=== PATIENT | female | born 1965 | race Caucasian/White ===

== ENCOUNTER 2016-04-21 14:02 | Outpatient (CLI) | payer OTHER ==
[~2016-04-21] VITALS: Ht 160 cm; Wt 76.8 kg
[2016-04-21 14:18] VITALS: BP 117/72; PULSE 82; RESP 18; Ht 160 cm; Wt 76.8 kg
[2016-04-21] MEDS ORDERED: CITA10TA84 PO (15:43)
[2016-04-21] MEDS ORDERED: BENZ0.5T3 PO (15:43)
[2016-04-21] MEDS ORDERED: BENZ1TAB7 PO (15:43)
[2016-04-21] MEDS ORDERED: PERP4TAB10 PO (15:43)
[2016-04-21] MEDS ORDERED: TRAZ50TA18 PO (15:43)
[2016-04-21] MEDS ORDERED: SIMV20TA PO (15:43)
--- NOTE | 2016-04-21 17:07 | CONS ---
[facility] INITIAL OUTPATIENT CONSULTATION NOTE PLACE OF SERVICE: [facility] DATE OF CONSULTATION: 04/21/2016 ASSESSMENT AND PLAN: A very pleasant 51-year-old lady with several comorbid issues including BMI of 30 as well as a number of medical problems such as hyperlipidemia, anxiety, depression, and prior cholecystectomy that has been complicated by an umbilical incisional hernia. This is a relatively straightforward problem to take care of surgically. Since the patient has pain in the location distal to this, it would be important for us to get an abdominal CT scan in order to identify and plan for the operation better. I explained this to the patient and answered all her questions to the best of my ability. The patient appeared to understand and wished to proceed. With above assessment I have recommended the followin. Abdominal and pelvic CT scan with IV and oral contrast. 2. Follow up visit with us to obtain the consent for the operation which will likely be an open umbilical hernia repair. Thank you again for allowing us to participate in the care of this very pleasant lady and I am certain her wonderful family. Note that no family was present during this discussion with the patient. If there are any questions, please call me at [phone]. TOTAL VISIT TIME: 45 minutes of which more than half was spent in [id number] discussion with the patient as well as coordination of care between multiple physicians and providers. Updated Clinical Summary: The patient is a very pleasant 51-year-old lady with comorbidity of BMI 30 and previous laparoscopic cholecystectomy in [facility] 2 years ago that was complicated by incisional hernia. COMORBIDITIES: 1. BMI 30. 2. Prior laparoscopic cholecystectomy complicated by incisional hernia at the umbilicus. 3. Possible muscle spasm treated with Benztropine. 4. History of hyperlipidemia. 5. Anxiety. 6. Depression. HISTORY OF PRESENT ILLNESS: The patient is a very pleasant 51-year-old lady with above-mentioned comorbidities who was referred to us for evaluation and management of an umbilical lump with associated pain and discomfort and no prior bowel obstructions. The patient had a laparoscopic cholecystectomy done in [facility] approximately 2 years ago and reports feeling this mass around her umbilicus since then. She also has slight amount of pain slightly superior and lateral to this region. She has been eating well, and her appetite has been unchanged. No significant weight gain or weight loss. No other pertinent positives or pertinent negatives in a complete 14-point review of systems. ALLERGIES: NO KNOWN DRUG ALLERGIES. MEDICATIONS: 1. Benztropine. 2. Cogentin. 3. Citalopram. 4. Perphenazine 5. Zocor. 6. Trazodone. SOCIAL HISTORY: Currently, the patient is not working. 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 She does not report any smoking, drinking , or intravenous drug use. FAMILY HISTORY: No major reported medical, surgical, or oncologic problems in the family. REVIEW OF SYSTEMS: As above. PHYSICAL EXAMINATION: GENERAL: The patient appears to be a very pleasant lady of descent, appearing stated age, sitting in a chair comfortably and in no acute distress. BMI is 30. She is afebrile. VITAL SIGNS: Stable. HEENT: Normocephalic and atraumatic. Extraocular muscles and hearing are grossly intact bilaterally and symmetrically. Sclerae are nonicteric. Oral cavity is clear; oral mucosa appeared to be pink and moist. Dentition: fair. NECK: Supple. There is no lymphadenopathy or JVD. There is no submental, submandibular or supraclavicular lymphadenopathy. CHEST: Rises symmetrically with each breath; patient is breathing comfortably. There are no audible wheezes, rales or rhonchi on the gross exam. HEART: Pulse is regular and palpable on the left wrist. Capillary refill was normal. Carotid pulses are palpable bilaterally and symmetrically in the neck. ABDOMEN: Soft, nondistended, and mildly tender to palpation around the area of the umbilicus that shows well-healed scar but a slight bulge that is palpable with the patient standing up and worsens slightly with Valsalva maneuver. The area superior and lateral to the left of this region does elicit a bit of tenderness, but there is no obvious hernia in that spot. No peritoneal signs or guarding. SKIN: Otherwise appears to be pink and feels warm to touch. EXTREMITIES: There is no organomegaly, caput medusae, engorged subcutaneous veins, or evidence of ascites. NEUROLOGIC: Awake, alert, and follows commands appropriately. LABORATORY VALUES: None for this visit. IMAGING: None for this visit. Dictated By: MIRTA REGAN/CANELO Conf#: [id number] DID#: [id number] CC: Azael Newman MD;*[facility]* MTDD
== END 2016-04-21 17:00 | disposition home or self-care (01) ==
LOC: HPC 14:02
PROVIDERS: ATTEND Transplant Surgery
DX: K43.2 Incisional hernia without obstruction or gangrene (principal); E78.5 Hyperlipidemia, unspecified; F41.8 Other specified anxiety disorders
CPT/HCPCS: G0463

== ENCOUNTER 2016-05-03 12:39 | Outpatient (CLI) | payer OTHER ==
[~2016-05-03] VITALS: Ht 160 cm; Wt 76.8 kg
[~2016-05-03 12:39] MED LIST: BENZ0.5T3 PO; BENZ1TAB7 PO; CITA10TA84 PO; PERP4TAB10 PO; SIMV20TA PO; TRAZ50TA18 PO
[2016-05-03 13:00] VITALS: BP 108/60; PULSE 81; RESP 16; Ht 160 cm; Wt 76.8 kg
--- NOTE | 2016-05-03 16:09 | CONS ---
[facility] OUTPATIENT SUBSEQUENT CONSULTATION NOTE DATE OF CONSULTATION: 05/03/2016 PLACE OF SERVICE: [facility] at [facility] IMPRESSION AND PLAN: A very pleasant 51-year-old lady with multiple comorbid issues who has an incisional umbilical hernia that is amenable to surgical repair. I spent quite a bit of time during this visit obtaining the patient's consent. After describing the findings that we had on the CT scan of the abdomen and pelvis that was done on 04/30/2016, showing moderate-sized midline ventral periumbilical hernia containing fat only and otherwise unremarkable CT scan. Patient is interested in having the operation. I reviewed the risks, benefits and alternatives in detail with the patient and answered all of these questions and obtained her consent for the operation. With above assessment I have recommended the followin. Preoperative history and physical. 2. Schedule the patient for a laparoscopic, possible open, possible mesh hernia repair of the umbilical incisional hernia. Thank you again for allowing us to participate in the care of this very pleasant lady and I am certain her wonderful family. If there are any questions , please feel free to call me at [phone]. TOTAL VISIT TIME: 30 minutes of which more than half was spent in [id number] discussion with the patient as well as coordination of care between multiple physicians and providers. Updated Clinical Summary: The patient is a very pleasant 51-year-old lady with comorbidity of BMI 30 and previous laparoscopic cholecystectomy in [facility] 2 years ago that was complicated by incisional hernia. COMORBIDITIES: 1. BMI 30. 2. Prior laparoscopic cholecystectomy complicated by incisional hernia at the umbilicus. 3. Possible muscle spasm treated with Benztropine. 4. History of hyperlipidemia. 5. Anxiety. 6. Depression. SUBJECTIVE: Returns today after undergoing CT scan of the abdomen and pelvis on 04/30/2016 for evaluation and management of her umbilical incisional hernia. She has no new complaints. She still has some discomfort in the periumbilical region and some in the left mid quadrant, away from the umbilical area. No reported nausea or vomiting and no issues with fevers and chills. OBJECTIVE: GENERAL: On exam, the patient was sitting in a chair and appeared to be comfortable and in no acute distress. BMI is 30. Temperature is 98.2. Blood pressure 117/72. Pulse 82, respiratory rate 18, pulse oximetry 96% on room air. ABDOMEN: Soft, nondistended and minimally tender to palpation around the umbilicus. The skin overlying it is not erythematous and appears to be pink. The abdomen is otherwise soft and nondistended. There are no peritoneal signs or guarding. SKIN: Skin appears to be pink and feels warm to touch. NEUROLOGIC: Patient is awake, alert, and follows commands appropriately. Dictated By: MIRTA REGAN/CANELO Conf#: [id number] DID#: [id number] CC: Manny Loera;*[facility]* MTDD
== END 2016-05-03 16:37 | disposition home or self-care (01) ==
LOC: HPC 12:39
PROVIDERS: ATTEND Transplant Surgery
DX: K42.9 Umbilical hernia without obstruction or gangrene (principal); E78.5 Hyperlipidemia, unspecified; F41.9 Anxiety disorder, unspecified; F32.9 Major depressive disorder, single episode, unspecified
CPT/HCPCS: G0463

== ENCOUNTER 2016-06-17 06:48 | Day surgery (SDC) | payer OTHER ==
[~2016-06-17] VITALS: Ht 154.9 cm; Wt 76.9 kg
[2016-06-17] VITALS (15 sets, daily range): BP systolic 100–140; BP diastolic 54–76; PULSE 68–89; RESP 12–24; Ht 154.9 cm; Wt 76.9 kg
[2016-06-17] MEDS ORDERED: CEFAZOLIN 2 GM/50 ML (PMX) 50 ML IVPB ONE (07:00)
[2016-06-17] MEDS ORDERED: D5W-0.45 NACL + KCL 20 MEQ 1,000 ML IV ONE (07:00)
[2016-06-17] MEDS ORDERED: BENZ1TAB7 PO (07:44)
--- NOTE | 2016-06-17 09:05 | HPN ---
Date/Time of Note Date/Time of Note DATE: 06/17/16 TIME: 09:04 Interval H&P Admission Note Pt. seen H&P reviewed: No system changes Pt. seen H&P reviewed. No system changes (I attest that I have seen and examined the patient and reviewed the operation in detail, as well as its risks , benefits and alternatives of the operation). I attest that I have seen and examined the patient and reviewed in detail the operation, and its associated risks, benefits and alternative. I have answered all the patient's questions to the best of my ability and the patient wishes to proceed. Please refer to rest of electronic medical record for additional updates. MIRTA WITT M.D. Jun 17, 2016 09:05
[2016-06-17] MEDS ORDERED: ONDANSETRON 4 MG INJ ONE (09:06)
[2016-06-17] MEDS ORDERED: MIDAZOLAM 1 MG/ML 2 ML INJ ONE (09:06)
[2016-06-17] MEDS ORDERED: DEXAMETHASONE 4 MG/ML 1 ML INJ ONE (09:07)
[2016-06-17] MEDS ORDERED: BUPIVACAINE 0.25%/EPI (SDV) 30 ML INJ ONE (09:14)
[2016-06-17] MEDS ORDERED: POLYMYXIN/BACITRACIN 1L IRRIG ONE (09:14)
[2016-06-17] MEDS ORDERED: PHENYLephrine (100 MCG/ML) 5ML SYG ONE (09:41)
[2016-06-17] MEDS ORDERED: SUCCINYLCHOLINE CHLORIDE 100 MG/5 ML SYG IV ONE (09:43)
[2016-06-17] MEDS ORDERED: LIDOCAINE 2% (SDV) 5 ML INJ ONE (09:43)
[2016-06-17] MEDS ORDERED: PROPOFOL 20 ML ONE (09:43)
[2016-06-17] MEDS ORDERED: ROCURONIUM 50 MG INJ ONE (09:43)
[2016-06-17] MEDS ORDERED: EPHEDrine SULFATE 50 MG/5 ML SYG ONE (10:04)
[2016-06-17] MEDS ORDERED: CEFAZOLIN 1 GM INJ ONE (10:04)
[2016-06-17] MEDS ORDERED: KETAMINE 500 MG INJ ONE (10:29)
[2016-06-17] MEDS ORDERED: POLYMYXIN/BACITRACIN 1L IRRIG IRR ONE (10:45)
[2016-06-17] MEDS ORDERED: GLYCOPYRROLATE 0.4 MG INJ ONE (11:12)
[2016-06-17] MEDS ORDERED: NEOSTIGMINE 3 MG/3 ML SYRINGE ONE (11:12)
[2016-06-17] MEDS ORDERED: HYDROmorphONE 2 MG/ML SYG ONE (11:18)
--- NOTE | 2016-06-17 12:17 | OPR ---
Date/Time of Note Date/Time of Note DATE: 06/17/16 TIME: 12:16 Operative Report Operative\Procedure Findings [facility] INPATIENT OPERATIVE NOTE PLACE OF SERVICE: [facility] DATE OF SURGERY: 06/17/2016 PREOPERATIVE DIAGNOSIS: 1. Prior laparoscopic cholecystectomy complicated by incisional hernia at the umbilicus. 2. BMI 30. 3. Possible muscle spasm treated with Benztropine. 4. History of hyperlipidemia. 5. Anxiety. 6. Depression. POSTOPERATIVE DIAGNOSIS: 1. Prior laparoscopic cholecystectomy complicated by incisional hernia at the umbilicus. 2. BMI 30. 3. Possible muscle spasm treated with Benztropine. 4. History of hyperlipidemia. 5. Anxiety. 6. Depression. OPERATION: 1. Laparoscopic, converted to open umbilical incisional hernia repair with mesh (3cm x 3cm defect; Ventralight ST [id number]) SURGEON: Mirta Witt M.D. CYCLE SPECIALIST: [place] ANESTHESIA: General endotracheal tube anesthesia ANESTHESIOLOGIST: Letitia Pang CRNA BRIEF SUMMARY: An otherwise uncomplicated laparoscopic, converted to open umbilical incisional hernia repair with mesh (3cm x 3cm defect; Ventralight ST [id number]) was performed with findings of 3 x 3 cm incisional ventral hernia repair that was periumbilical. Updated Clinical Summary: The patient is a very pleasant 51-year-old lady with comorbidity of BMI 30 and previous laparoscopic cholecystectomy in [facility] 2 years ago that was complicated by incisional hernia. COMORBIDITIES: 1. BMI 30. 2. Prior laparoscopic cholecystectomy complicated by incisional hernia at the umbilicus. 3. Possible muscle spasm treated with Benztropine. 4. History of hyperlipidemia. 5. Anxiety. 6. Depression. BRIEF HISTORY: The patient is a very pleasant 51-year-old lady with comorbidity of BMI 30 and previous laparoscopic cholecystectomy in [facility] 2 years ago that was complicated by incisional hernia. I met with the patient (no family present during my discussions with the patient) and counseled them regarding the possible options of treatment, and I strongly suggested a laparoscopic, possible open ventral incisional hernia repair, possibly with mesh. We reviewed the operation in detail as well as the risks, benefits, alternatives, and expected outcomes of this operation. After careful consideration of all the risks, benefits, and alternatives, the patient appeared to understand those risks and wished to proceed with surgery. For a detailed report of my consultation with patient, please refer to my separate consultation note. STATEMENT OF THE INFORMED CONSENT: The patient appeared to understand the risks of the operation to include, but not be limited to risk of postoperative pain and scar tissue, possible infection or bleeding requiring other interventions such as opening the wound, placement of drainage catheters, or other operative interventions; possible injury to surrounding to structures including bowel, bladder, bile duct, or blood vessels, or solid organs such as liver, kidney, or pancreas requiring other interventions or procedures; possible leakage of bowel from anastomotic sites or suture lines causing significant increase in morbidity and mortality and requiring multiple interventions including but not limited to, placement of drainage catheters, imaging studies, as well as operative interventions; possible other source of sepsis such as urinary tract infections or pneumonias, or other sources of potentially life threatening problems such as deep venous thrombus formation causing pulmonary embolism, myocardial arrhythmias and infarctions, and even . After careful consideration of all their options, the patient and family appeared to understand and wished to proceed with surgery. DESCRIPTION OF PROCEDURE: After obtaining informed consent, the patient was brought into the operating room and was placed in a normal supine position, where successful general endotracheal tube anesthesia was performed. Intravenous access was already in place and intravenous antimicrobials had been appropriately chosen and dosed prior to the operation. The patient's abdominal skin was prepped and draped from the nipple line down to the level of the groins in the usual sterile fashion. We then called a surgical time-out where the patient's identification, date of , nature of the operation, allergies , presence of intravenous antimicrobials, presence of needed equipment, and any other concerns were reviewed and agreed upon by all members of the operating room team. We then started the operation by placing a 5 mm skin incision in the left upper quadrant midclavicular subcostal area and placed a 5 mm applied medical trocar into the peritoneal space visualizing all the layers of the abdominal wall as we entered using direct entry technique. Note that there was no indication of any injury to underlying structures. We insufflated the abdominal cavity to a maximum pressure of 15 mmHg. Initial inspection of the abdominal cavity showed a small defect in the periumbilical area without any incarcerated omentum or bowel in it. There was an area of omental adhesions caudal to the umbilicus which was not associated with an obvious hernia. After careful assessment of the situation, I decided to convert from laparoscopic to open in order to do a preperitoneal mesh repair of this area. We therefore abandoned the laparoscopic approach and made a curvilinear incision utilizing the patient's previous incision under and around the umbilicus more favoring the left side using a scalpel and then took down the subcutaneous fat down to the level of the hernia sac using combination of cautery as well as blunt dissection. We delineated the borders of the defect and then entered the hernia sac and resected it and send it to pathology for permanent sections. I then developed the plane between the peritoneum and the underside of the anterior fascia large enough to fit a 9 x 9 cm mesh. I closed the peritoneal defect using 3-0 Vicryl suture. I then used Ventralight ST mesh cut to 9 x 9 cm and then secured this in place underneath the fascia using 4 corner stitches with 2-0 PDS suture. I then closed the defect site using interrupted [id number] #1 PDS suture grabbing the middle of the mesh with each suture to secure the mesh in place. This all came together very nicely without any tension. Note that we had washed the area with copious amounts of normal saline before and after placement of the presoaked mesh. We then removed the trocar that we had in the left upper quadrant after making sure all the pneumoperitoneum that could come out of the abdominal cavity is out. We then washed the wounds with copious amounts of normal saline and reapproximated the skin using 4-0 Monocryl suture. Light dressing was then applied. At the end of the operation, both the sponge count and needle count were reportedly correct x2. The patient tolerated the procedure without any reported complications. ESTIMATED BLOOD LOSS: 10 mL BLOOD OR BLOOD PRODUCT TRANSFUSIONS: None to my knowledge. SPECIMENS: 1. Hernia sac is COMPLICATIONS: None. DISPOSITION: Recovery area. Disclaimer: Inadvertent spelling and grammatical errors are likely due to EHR/ dictation software use and do not reflect on the quality of delivered patient care. Also, please note that the electronic time recorded on this node does not necessarily reflect the actual time of the visit. MIRTA WITT M.D. Jun 17, 2016 12:17
[2016-06-17] MEDS ORDERED: BISACODYL 10 MG SUPP PR PRN (12:30)
[2016-06-17] MEDS ORDERED: HYDROCODONE/APAP (5/325) TAB PO PRN ×2 (12:30)
[2016-06-17] MEDS ORDERED: DOCUSATE SODIUM 100 MG CAP PO PRN (12:30)
== END 2016-06-17 13:31 | disposition home or self-care (01) ==
LOC: SDS 06:48 → EDSTATUS 09:00 → SDS 13:31
PROVIDERS: ATTEND Transplant Surgery
DX: K43.2 Incisional hernia without obstruction or gangrene (principal); E66.9 Obesity, unspecified; Z68.32 Body mass index [BMI] 32.0-32.9, adult; E78.5 Hyperlipidemia, unspecified; F32.9 Major depressive disorder, single episode, unspecified
CPT/HCPCS: 49560; 49568; 84703; 86850; 86900; 86901; 88302; C1781; J0330; J0690; J1100; J1170; J2250; J2370; J2405; J2710; J3010; Z7512; Z7610

== ENCOUNTER 2016-06-21 13:53 | Inpatient (IN) | payer OTHER ==
[~2016-06-21] VITALS: Ht 157.5 cm; Wt 74.5 kg
[~2016-06-21 13:53] MED LIST changes: -BENZ0.5T3 PO
[2016-06-21] MEDS ORDERED: ONDANSETRON 4 MG INJ IV STA (16:42)
[2016-06-21] MEDS ORDERED: FAMOTIDINE 20 MG INJ IV STA (16:42)
[2016-06-21] MEDS ORDERED: morphine 4 MG/ML VIAL IV STA ×2 (16:42→18:20)
[2016-06-21] MEDS ORDERED: SOD CHLORIDE 0.9% 1,000 ML IV STA (16:42)
[2016-06-21 17:08] LABS: ADD SCAN DIFF NO
[2016-06-21 17:10] LABS: BASOPHILS % 0.3 % (0.0-2.0); EOSINOPHILS # 0.1 10^3/ul (0.0-0.5); EOSINOPHILS % 0.8 % (0.0-7.0); HEMATOCRIT 45.7 % (37.0-47.0); LYMPHOCYTES # 1.4 10^3/ul (0.8-2.9); LYMPHOCYTES % 12.2 % (15.0-51.0); MEAN CORPUSCULAR HEMOGLOBIN 27.5 pg (29.0-33.0); MEAN CORPUSCULAR HGB CONC 32.8 g/dl (32.0-37.0); MEAN CORPUSCULAR VOLUME 83.9 fl (82.0-101.0); MONOCYTE # 0.5 10^3/ul (0.3-0.9); MONOCYTES % 3.8 % (0.0-11.0); NEUTROPHIL # 9.7 10^3/ul (1.6-7.5); NEUTROPHILS % 82.5 % (39.0-77.0); PLATELET COUNT 453 10^3/UL (140-415); RED BLOOD COUNT 5.45 10^6/ul (4.20-5.40); RED CELL DISTRIBUTION WIDTH 14.3 % (11.5-14.5); WHITE BLOOD COUNT 11.8 10^3/ul (4.8-10.8)
[2016-06-21 17:24] LABS: ALBUMIN 4.8 g/dl (3.3-4.9)
[2016-06-21 17:25] LABS: CHLORIDE 96 mmol/L (97-110); SODIUM 138 mmol/L (135-144)
[2016-06-21 17:26] LABS: INR 0.94; PROTIME 12.6 Sec (12.2-14.2)
[2016-06-21 17:27] LABS: ALANINE AMINOTRANSFERASE 48 IU/L (13-69); ALKALINE PHOSPHATASE 121 IU/L (42-121); ANION GAP 22 (8-16); ASPARTATE AMINO TRANSFERASE 32 IU/L (15-46); BILIRUBIN,INDIRECT 0.6 mg/dl (0-1.1); BILIRUBIN,TOTAL 0.6 mg/dl (0.2-1.3); BLOOD UREA NITROGEN 12 mg/dl (7-20); CARBON DIOXIDE 24 mmol/L (21-31); CREATININE 0.62 mg/dl (0.44-1.00); GLUCOSE 138 mg/dl (70-220); PARTIAL THROMBOPLASTIN TIME 30.3 Sec (25.0-35.0); TOTAL PROTEIN 9.6 g/dl (6.1-8.1)
[2016-06-21 17:28] LABS: CALCIUM 9.7 mg/dl (8.4-10.2)
[2016-06-21] MEDS ORDERED: MECLIZINE 12.5 MG TAB PO ONE (17:30)
[2016-06-21 17:41] LABS: TROPONIN-I < 0.012 ng/ml (0.00-0.12)
[2016-06-21] MEDS ORDERED: METOCLOPRAMIDE 10 MG INJ IV ONE ×2 (19:00→21:00)
[2016-06-21 19:31] LABS: ADD UMIC YES; URINE BILIRUBIN (Dip) NEGATIVE (NEGATIVE); URINE BLOOD (Dip) TRACE (NEGATIVE); URINE GLUCOSE (Dip) NEGATIVE (NEGATIVE); URINE KETONES (Dip) 15 (NEGATIVE); URINE LEUKOCYTE ESTERASE (Dip) NEGATIVE (NEGATIVE); URINE NITRITE (Dip) NEGATIVE (NEGATIVE); URINE TOTAL PROTEIN (Dip) NEGATIVE (NEGATIVE); URINE UROBILINOGEN (Dip) 0.2 E.U./dL (0.1-1.0)
[2016-06-21 19:33] LABS: URINE COLOR YELLOW (YELLOW)
--- NOTE | 2016-06-21 19:35 | RADRPT ---
PROCEDURE: CT Abdomen and Pelvis without contrast CLINICAL INDICATION: Abdominal pain, vomiting, status post hernia surgery 06/17/2016 TECHNIQUE: Transaxial images were obtained through the abdomen and pelvis on a multi-slice scanner without the intravenous contrast administration. No oral contrast had previously been given. Sagit vidal and coronal re-formations were subsequently reconstructed. One or more of the following dose reduction techniques were used: - Automated exposure control. - Adjustment of the mA and/or kV according to patient size. - Use of iterative reconstruction technique. Radiation dose: CTDIvol = 15.37 mGy; DLP = 856.14 mGy-cm. COMPARISON: No prior studies are available for comparison. FINDINGS: Lung bases: The visualized lung bases appear unremarkable. Liver: The liver is borderline enlarged and is heterogeneously fatty infiltrated. No discrete focal lesion is evident. Gallbladder: Surgical cesar are seen in the gallbladder fossa. Bile ducts: The common hepatic duct is dilated to 1.1 cm in cross diameter. The common bile duct me asures approximately 0.7 cm in diameter and tapers to the head of the pancreas. Pancreas: Appears normal with no mass or inflammation evident. Spleen: Normal in size with no focal lesion. Adrenals: Normal with no mass identified. Kidneys, ureters and bladder: The kidneys are normal in size and there is no mass, pathological calc ification, or hydronephrosis evident. There is no perinephric stranding. The ureters are normal in c aliber and no ureteroliths are identified. The bladder appears unremarkable. Reproductive organs: The uterus deviates mildly to the left of midline. No adnexal mass is evident. Stomach and bowel: The stomach appears unremarkable. There is no evidence of bowel obstruction or i nflammation. Substantial stool seen in the right colon. Appendix: There is a normal-appearing vermiform appendix. Peritoneum: No free intraperitoneal fluid or air is identified. There is stranding within the anteri or omentum. Aorta: Normal in caliber with no aneurysmal dilatation. IVC: Unremarkable. Lymph nodes: No pathologically enlarged nodes are identified. Osseous structures: Right-sided degenerative facet changes are noted at L5-S1. Soft tissues: There is thickening of the abdominal rectus muscle at and extending superior to the le arvind of the umbilicus with a small amount of fluid bubbles of air seen within the muscle and also see n within the subcutaneous fat extending to the umbilicus. Stranding is seen within the anterior sub cutaneous fat. IMPRESSION: 1. There is thickening of the anterior rectus muscle both to the left and right of midline act and extending superior to the umbilicus with a small amount of fluid and bubbles of air seen within the rectus muscle and extending into the subcutaneous fat anterior to the musculature at the umbilicus. Findings are compatible with postoperative change and an early developing abscess should be consider ed. There is stranding within the anterior omentum. 2. Status post cholecystectomy. The common hepatic duct is dilated to 1.1 cm in the common bile du ct measures 0.7 cm but tapers to the head of the pancreas. The pancreas appears normal. 3. There is no evidence of bowel obstruction or inflammation with a normal-appearing vermiform appe ndix. 4. Mild hepatomegaly with heterogeneous fatty infiltration but no focal lesion. 5. Degenerative facet changes seen on the right at L5-S1. Findings of thickening of the anterior rectus musculature with some fluid and bubbles of air seen wi thin the muscle and anterior to the muscle at the umbilicus with concern for developing abscess were telephoned by Efra Matos MD to Dr. Reese on 06/21/2016 at 1930 hours. Physician Maryellen Date Time Electronically viewed and signed by Physician Maryellen on 06/21/2016 19:35 /
[2016-06-21] MEDS ORDERED: SOD CHLORIDE 0.9% 1,000 ML IV SCH (19:58)
[2016-06-21] MEDS ORDERED: ACETAMINOPHEN 325 MG TAB PO PRN (20:00)
[2016-06-21] MEDS ORDERED: ONDANSETRON 4 MG INJ IV PRN ×2 (20:00→22:00)
[2016-06-21] MEDS ORDERED: CEFTRIAXONE 1 GM/50 ML (PMX) 50 ML IVPB ONE (20:00)
[2016-06-21 20:01] LABS: BACTERIA,URINE FEW; SQUAMOUS EPITHELIAL CELL,UR MANY
--- NOTE | 2016-06-21 20:03 | ERA ---
ER Documentation Chief Complaint Date/Time DATE: 06/21/16 TIME: 19:59 Chief Complaint HEADACHE/DIZZINESS/NAUSEA/VOMITING X 2 DAY S/P HERNIAL SURGERY HPI This is a 51-year-old female who presents to the emergency room for evaluation of headache, dizziness, nausea, vomiting and mild abdominal pain. This patient did have a hernia repair with mesh 2 days ago with , and he sent the patient in for further evaluation of her pain. The patient localizes the pain to the midportion of her abdomen where her incision is and she states that she has vomited multiple times. She denies any fevers or diarrhea associated with this. She also states that she is feeling dizzy and describes her dizziness as a room spinning sensation. ROS All systems reviewed and are negative except as per history of present illness. Medications Home Meds Reported Medications Benztropine Mesylate* (Benztropine Mesylate*) 1 Mg Tablet, 1 MG PO DAILY, TAB 06/17/16 Simvastatin* (Zocor*) 20 Mg Tablet, 20 MG PO QHS, #30 TAB 04/21/16 Citalopram Hydrobromide* (Citalopram Hydrobromide*) 10 Mg Tablet, 10 MG PO DAILY , #30 TAB 04/21/16 Trazodone Hcl* (Trazodone Hcl*) 50 Mg Tablet, 50 MG PO QHS, #30 TAB 04/21/16 Perphenazine* (Perphenazine*) 4 Mg Tablet, 4 MG PO BID, TAB 04/21/16 Discontinued Reported Medications Benztropine Mesylate* (Cogentin*) 1 Mg Tab, 5 MG PO DAILY, TAB 04/21/16 Benztropine Mesylate* (Benztropine Mesylate*) 0.5 Mg Tablet, 0.5 MG PO TID, TAB 04/21/16 Allergies Allergies: Coded Allergies: No Known Drug Allergy (Verified Allergy, Unknown, 06/21/16) PMhx/Soc History of Surgery: Yes (ECTOPIC NATA FALLOPIAN TUBES/LEFT OVARY, CHOLECYSTECTOMTY) Anesthesia Reaction: No Hx Neurological Disorder: No Hx Respiratory Disorders: No Hx Cardiac Disorders: Yes (CHOLESTEROL) Hx Psychiatric Problems: No Hx Miscellaneous Medical Probl: Yes (UNBIL;ICAL HERNIA REPAIR) Hx Alcohol Use: No Hx Substance Use: No Hx Tobacco Use: No Smoking Status: Never smoker Physical Exam Vitals Vital Signs Date Time Temp Pulse Resp B/P Pulse Ox O2 Delivery O2 Flow Rate FiO2 06/21/16 18:44 94 18 131/94 100 Room Air 06/21/16 14:00 97.8 84 18 140/83 96 Physical Exam INITIAL VITAL SIGNS: Reviewed by me GENERAL: The patient is well developed and appropriate for usual state of health in no apparent distress HEENT: Pupils equal, round, and reactive to light. EOMI. There is no scleral icterus. NECK: C-spine is soft and supple, there is no meningismus. There is no cervical lymphadenopathy. LUNGS: Clear to auscultation bilaterally. There are no rales, wheezes or rhonchi. HEART: Regular rate and rhythm, no murmurs, clicks, rubs or gallops. ABDOMEN: Incision site, clean dry intact, mild erythema surrounding the incisions, no drainage noted, no flexion. There are bowel sounds in all four quadrants. No rebound or guarding. EXTREMITIES: There is no peripheral cyanosis or edema. No focal swelling or erythema. NEUROLOGICAL: The patient moves all four extremities with 5/5 strength. Cranial nerves II - XII are intact. Normal gait. Alert and oriented SKIN: There is no apparent rash or petechiae. HEME/LYMPHATIC: There is no evidence of excessive bruising or lymphedema. PSYCHIATRIC: The patient does not appear anxious or depressed. Result Diagram: 06/21/16 1700 06/21/16 1700 Results 24 hrs Laboratory Tests Test 06/21/16 17:00 06/21/16 19:15 White Blood Count 11.810^3/ul Red Blood Count 5.4510^6/ul Hemoglobin 15.0g/dl Hematocrit 45.7% Mean Corpuscular Volume 83.9fl Mean Corpuscular Hemoglobin 27.5pg Mean Corpuscular Hemoglobin Concent 32.8g/dl Red Cell Distribution Width 14.3% Platelet Count 29364^3/UL Mean Platelet Volume 9.0fl Neutrophils % 82.5% Lymphocytes % 12.2% Monocytes % 3.8% Eosinophils % 0.8% Basophils % 0.3% Nucleated Red Blood Cells % 0.0/100WBC Neutrophils # 9.710^3/ul Lymphocytes # 1.410^3/ul Monocytes # 0.510^3/ul Eosinophils # 0.110^3/ul Basophils # 0.010^3/ul Nucleated Red Blood Cells # 0.010^3/ul Prothrombin Time 12.6Sec Prothrombin Time Ratio 1.0 INR International Normalized Ratio 0.94 Activated Partial Thromboplast Time 30.3Sec Sodium Level 138mmol/L Potassium Level 4.0mmol/L Chloride Level 96mmol/L Carbon Dioxide Level 24mmol/L Anion Gap 22 Blood Urea Nitrogen 12mg/dl Creatinine 0.62mg/dl Glucose Level 138mg/dl Calcium Level 9.7mg/dl Total Bilirubin 0.6mg/dl Direct Bilirubin 0.00mg/dl Indirect Bilirubin 0.6mg/dl Aspartate Amino Transf (AST/SGOT) 32IU/L Alanine Aminotransferase (ALT/SGPT) 48IU/L Alkaline Phosphatase 121IU/L Troponin I < 0.012ng/ml Total Protein 9.6g/dl Albumin 4.8g/dl Globulin 4.80g/dl Albumin/Globulin Ratio 1.00 Lipase 36U/L Urine Color YELLOW Urine Clarity SLIGHTLY CLOUDY Urine pH 6.0 Urine Specific Carson 1.025 Urine Ketones 15 Urine Nitrite NEGATIVE Urine Bilirubin NEGATIVE Urine Urobilinogen 0.2 E.U./dL Urine Leukocyte Esterase NEGATIVE Urine Microscopic RBC Pending Urine Microscopic WBC Pending Urine Hemoglobin TRACE Urine Glucose NEGATIVE% Urine Total Protein NEGATIVE Current Medications Medications (Trade) Dose Ordered Sig/Maria Guadalupe Route PRN Reason Start Time Stop Time Status Last Admin Dose Admin Sodium Chloride (NS) 1,000 ml @ 1,000 mls/hr Q1H STAT IV 06/21/16 16:42 06/21/16 17:41 DC 06/21/16 16:52 Morphine Sulfate (morphine) 4 mg ONCE STAT IV 06/21/16 16:42 06/21/16 16:44 DC 06/21/16 16:53 Ondansetron HCl (Zofran Inj) 4 mg ONCE STAT IV 06/21/16 16:42 06/21/16 16:44 DC 06/21/16 16:52 Famotidine (Pepcid Iv) 20 mg ONCE STAT IV 06/21/16 16:42 06/21/16 16:44 DC 06/21/16 16:52 Meclizine HCl (Antivert) 25 mg ONCE ONCE PO 06/21/16 17:30 4/10/17 17:31 DC 06/21/16 18:43 Morphine Sulfate (morphine) 4 mg ONCE STAT IV 06/21/16 18:20 06/21/16 18:21 DC 06/21/16 18:43 Metoclopramide HCl 10 mg 10 mg ONCE ONCE IV 06/21/16 19:00 06/21/16 19:01 DC 06/21/16 18:42 Ceftriaxone Sodium (Rocephin) 50 ml @ 100 mls/hr ONCE ONCE IVPB 06/21/16 20:00 06/21/16 20:29 Procedures/MDM CT abdomen pelvis without: 1. There is thickening of the anterior rectus muscle both to the left and right of midline act and extending superior to the umbilicus with a small amount of fluid and bubbles of air seen within the rectus muscle and extending into the subcutaneous fat anterior to the musculature at the umbilicus. Findings are compatible with postoperative change and an early developing abscess should be considered. There is stranding within the anterior omentum. 2. Status post cholecystectomy. The common hepatic duct is dilated to 1.1 cm in the common bile duct measures 0.7 cm but tapers to the head of the pancreas. The pancreas appears normal. 3. There is no evidence of bowel obstruction or inflammation with a normal- appearing vermiform appendix. 4. Mild hepatomegaly with heterogeneous fatty infiltration but no focal lesion. 5. Degenerative facet changes seen on the right at L5-S1. This 51-year-old female presents to the ER for evaluation of abdominal pain. She is status post hernia repair with mesh postop day #2. This patient was complaining of lightheadedness, dizziness, nausea. I did give this patient Zofran and morphine to control her pain and nausea. The patient continues to remain nauseous despite Zofran and I did give this patient Reglan. She was given a second dose of morphine with complete resolution of her pain and nausea. Her CT does show thickening of the anterior rectus muscle and a small amount of fluid and bubbles of air within the rectus muscles extending into the subcutaneous fat anterior to the umbilicus. This patient does not have fever, no significant elevations in her LFTs or bilirubin. I have spoken to Dr. Ames and he agrees the patient can be admitted for observation overnight for IV antibiotics, Zofran, fluids. This patient will be admitted under the care of Dr. Rosas Departure Diagnosis: Primary Impression: Postoperative pain Additional Impression: Nausea & vomiting Condition: Stable WISAM MALDONADO DO Jun 21, 2016 20:03
[2016-06-21] MEDS ORDERED: DEXAMETHASONE 10 MG/ML 1 ML INJ IV ONE (21:00)
[2016-06-21] MEDS ORDERED: DIPHENHYDRAMINE 50 MG INJ IV ONE (21:00)
[2016-06-21 21:30] VITALS: BP 145/72; PULSE 65; RESP 20; Ht 157.5 cm; Wt 74.5 kg
[2016-06-21] MEDS ORDERED: morphine 2 MG INJ IV PRN (22:00)
[2016-06-21] MEDS: PIPER-TAZO 3.375 GM IV (PMX) 100 ML IVPB SCH (22:24)
[2016-06-21] MEDS: DEXTROSE 5%-0.9% NACL 1,000 ML IV SCH (22:24)
[2016-06-22 05:06] LABS: ADD SCAN DIFF NO
[2016-06-22 05:10] LABS: BASOPHILS % 0.1 % (0.0-2.0); HEMATOCRIT 41.2 % (37.0-47.0); HEMOGLOBIN 13.5 g/dl (12.0-16.0); LYMPHOCYTES # 0.7 10^3/ul (0.8-2.9); LYMPHOCYTES % 7.7 % (15.0-51.0); MEAN CORPUSCULAR HEMOGLOBIN 27.5 pg (29.0-33.0); MEAN CORPUSCULAR HGB CONC 32.8 g/dl (32.0-37.0); MEAN CORPUSCULAR VOLUME 83.9 fl (82.0-101.0); MEAN PLATELET VOLUME 9.1 fl (7.4-10.4); MONOCYTE # 0.1 10^3/ul (0.3-0.9); MONOCYTES % 0.7 % (0.0-11.0); NEUTROPHIL # 8.6 10^3/ul (1.6-7.5); NEUTROPHILS % 91.3 % (39.0-77.0); PLATELET COUNT 395 10^3/UL (140-415); RED BLOOD COUNT 4.91 10^6/ul (4.20-5.40); RED CELL DISTRIBUTION WIDTH 14.1 % (11.5-14.5); WHITE BLOOD COUNT 9.5 10^3/ul (4.8-10.8)
[2016-06-22] MEDS: PANTOPRAZOLE 40 MG INJ IV SCH (05:14)
[2016-06-22] MEDS: PIPER-TAZO 3.375 GM IV (PMX) 100 ML IVPB SCH ×3 (05:14→17:18)
[2016-06-22 05:34] LABS: ALBUMIN/GLOBULIN RATIO 1.02; BILIRUBIN,INDIRECT 0.4 mg/dl (0-1.1); BILIRUBIN,TOTAL 0.4 mg/dl (0.2-1.3); CALCIUM 8.6 mg/dl (8.4-10.2); CREATININE 0.6 mg/dl (0.44-1.00); POTASSIUM 4.3 mmol/L (3.5-5.1); TOTAL PROTEIN 7.9 g/dl (6.1-8.1)
[2016-06-22 07:49] VITALS: BP 98/55; RESP 18
[2016-06-22] MEDS: ACETAMINOPHEN 325 MG TAB PO PRN ×3 (08:47→20:11)
--- NOTE | 2016-06-22 10:08 | PN ---
Date/Time of Note Date/Time of Note DATE: 06/22/16 TIME: 10:02 Assessment/Plan Lines/Catheters IV C[facility]ter Type (from [facility]): Peripheral IV Assessment/Plan Assessment/Plan [facility] Progress Note Date of Service: 06/22/16 Today's Impression & Plan: Overall stable and doing well post op without major incision related issues. Findings on the CT scan are to be expected this short of a time after surgery and the patient's examination and clinical picture argue against mesh infection. Discussed with radiology (much appreciated Dr. Crow's input). Symptoms may be related to factors other than patient's incision. Regardless, I have recommended that the patient stays in-house for at least 1 more night and for us to continue her antimicrobial coverage and observation with plans to possibly discharge her tomorrow morning. Answered all questions. Patient appears to understand and agreed with the plans. With above assessment, I've recommended the following for today: 1. Continue in-house observation with continuation of intravenous antimicrobials 2. Careful monitoring of I's and O's and vitals 3. Lab check in a.m. 4. Possible discharge home tomorrow morning if clinically stable Thank you again for your great care of this very pleasant patient and wonderful family. If there are any questions, please feel free to call me at [phone]. TOTAL VISIT TIME: 20 minutes of which more than half was spent in [id number] discussion with the patient, possibly including family, as well as coordination of care between multiple physicians and providers. Disclaimer: Inadvertent spelling or grammatical errors are likely due to EHR/ dictation software use and do not reflect on the overall quality of patient care. Updated Clinical Summary: The patient is a very pleasant 51-year-old lady with comorbidity of BMI 30 and previous laparoscopic cholecystectomy in [facility] 2 years ago that was complicated by incisional hernia. S/p an otherwise uncomplicated laparoscopic, converted to open umbilical incisional hernia repair with mesh (3cm x 3cm defect ; Ventralight ST [id number]) on 06/17/2016. Readmitted with abdominal pain, nausea, vomiting, and headache on 06/21/2016 through the emergency department with white blood cell count of approximately 12,000 and slight fluid around the mesh as well as 2 small air bubbles. Clinical picture was not consistent with mesh infection. COMORBIDITIES: 1. BMI 30. 2. Prior laparoscopic cholecystectomy complicated by incisional hernia at the umbilicus. 3. Possible muscle spasm treated with Benztropine. 4. History of hyperlipidemia. 5. Anxiety. 6. Depression. 7. S/p an otherwise uncomplicated laparoscopic, converted to open umbilical incisional hernia repair with mesh (3cm x 3cm defect; Ventralight ST [id number]) on 06/17/2016. Readmitted with abdominal pain, nausea, vomiting, and headache on 06/21/2016 through the emergency department with white blood cell count of approximately 12,000 and slight fluid around the mesh as well as 2 small air bubbles. Clinical picture was not consistent with mesh infection. Subjective: No major events or complaints overnight; no major abd pain and under control with medications; reports only discomfort around the incision and no leakage/ drainage from the wound at home or in house; no n/v/d; no sob or cp; + flatus; + BM and normal; + activity Objective: Vitals: See below Exam: GENERAL: On exam, the patient was laying in bed and appeared to be comfortable and in no acute distress. ABDOMEN: Soft, nontender and nondistended. Incisions are clean, dry and intact without any evidence of erythema, edema, discharge, or hernia. There are no peritoneal signs or guarding. SKIN: Skin appears to be pink and feels warm to touch. NEUROLOGIC: Patient is awake, alert, and follows commands appropriately. Exam/Review of Systems Vital Signs Vitals Vital Signs Date Time Temp Pulse Resp B/P Pulse Ox O2 Delivery O2 Flow Rate FiO2 06/22/16 07:49 97.9 68 18 98/55 93 06/21/16 21:30 Room Air Intake and Output 06/21/16 06/21/16 06/22/16 15:00 23:00 07:00 Intake Total 100 ml 350 ml Output Total 700 ml Balance 100 ml -350 ml Results Result Diagram: 06/22/16 0434 06/22/16 0434 MIRTA WITT M.D. Jun 22, 2016 10:08
[2016-06-22 12:00] VITALS: BP 93/51; PULSE 64; RESP 18
[2016-06-22] MEDS: DEXTROSE 5%-0.9% NACL 1,000 ML IV SCH (17:19)
[2016-06-22 20:24] VITALS: BP 112/55; RESP 20
--- NOTE | 2016-06-22 22:01 | QN ---
Documentation Comment [id number] HUMA SHANKS MD Jun 22, 2016 22:01
[2016-06-23] MEDS: ACETAMINOPHEN 325 MG TAB PO PRN (03:47)
[2016-06-23 05:00] LABS: ADD SCAN DIFF NO
[2016-06-23 05:04] LABS: BASOPHILS % 0.4 % (0.0-2.0); EOSINOPHILS # 0.2 10^3/ul (0.0-0.5); EOSINOPHILS % 2.7 % (0.0-7.0); HEMATOCRIT 38.7 % (37.0-47.0); HEMOGLOBIN 12.4 g/dl (12.0-16.0); LYMPHOCYTES # 2.5 10^3/ul (0.8-2.9); LYMPHOCYTES % 29.6 % (15.0-51.0); MEAN CORPUSCULAR HEMOGLOBIN 27.3 pg (29.0-33.0); MEAN CORPUSCULAR VOLUME 85.2 fl (82.0-101.0); MEAN PLATELET VOLUME 9.2 fl (7.4-10.4); MONOCYTE # 0.6 10^3/ul (0.3-0.9); MONOCYTES % 6.9 % (0.0-11.0); NEUTROPHIL # 5.2 10^3/ul (1.6-7.5); PLATELET COUNT 345 10^3/UL (140-415); RED BLOOD COUNT 4.54 10^6/ul (4.20-5.40); RED CELL DISTRIBUTION WIDTH 14.6 % (11.5-14.5); WHITE BLOOD COUNT 8.6 10^3/ul (4.8-10.8)
[2016-06-23 05:34] LABS: ALBUMIN 3.5 g/dl (3.3-4.9)
[2016-06-23 05:35] LABS: POTASSIUM 3.4 mmol/L (3.5-5.1)
[2016-06-23 05:37] LABS: BILIRUBIN,INDIRECT 0.2 mg/dl (0-1.1); BILIRUBIN,TOTAL 0.2 mg/dl (0.2-1.3); CALCIUM 8.2 mg/dl (8.4-10.2); CREATININE 0.74 mg/dl (0.44-1.00)
[2016-06-23] MEDS: PIPER-TAZO 3.375 GM IV (PMX) 100 ML IVPB SCH ×2 (05:45→16:09)
[2016-06-23] MEDS: PANTOPRAZOLE 40 MG INJ IV SCH (05:45)
--- NOTE | 2016-06-23 07:30 | HP ---
DATE OF ADMISSION: 06/22/2016 HISTORY OF PRESENT ILLNESS: Racheal Goncalves is a 51-year-old female with history of laparoscopic cholecystectomy complicated by incisional hernia. The patient has history of hyperlipidemia, anxiety, depression, status post hernia repair with mesh. Now presents with abdominal pain and is being admitted for further management. The patient seen. Also patient has seen Dr. Arron Ames for hernia surgery. WBC 11.8, hematocrit 45.7, platelet count 453. WBC 9.5, hematocrit 41.2, platelet count 395. Sodium 135. The patient had a CT scan of the abdomen done, shows there is thickening of the anterior rectus muscle both to the left and the right of the midline and extending superior with small amount of fluid and bubbles of air seen within the rectus muscle and extending into the subcutaneous fat anterior to the musculature of the umbilicus. The patient has stranding within the anterior omentum, status post cholecystectomy. Common hepatic duct is dilated to 1.1 cm. Left common bile duct measures 0.7 cm. There is evidence of bowel obstruction or inflammation with a normal- appearing appendix, mild with fatty infiltration noted, and patient is being admitted for further management. ALLERGY HISTORY: NEGATIVE. FAMILY HISTORY: Negative. SOCIAL HISTORY: She denies. MEDICATION HISTORY: The patient is on: 1. Benztropine 1 mg daily. 2. Citalopram. 3. 4 mg b.i.d. 4. Zocor. 5. Trazodone. REVIEW OF SYSTEMS: HEENT: Unremarkable. RESPIRATORY: Unremarkable. CARDIOVASCULAR: Unremarkable. ABDOMEN: As mentioned above. EXTREMITIES: . GENITOURINARY: Unremarkable. MUSCULOSKELETAL: Unremarkable. PHYSICAL EXAMINATION: GENERAL: The patient is awake and alert. VITAL SIGNS: Pulse 64, blood pressure 93/51. HEAD: Atraumatic, normocephalic. EYES: Pupils equal, reactive to light. NECK: Supple. No JVD. LUNGS: Clear. CARDIOVASCULAR: S1, S2 are normal. ABDOMEN: Soft. Bowel sounds positive. Tenderness noted mildly in abdominal area. EXTREMITIES: No cyanosis, clubbing, edema. CENTRAL NERVOUS SYSTEM: The patient is awake, alert. No focal deficit. LABORATORY DATA: As mentioned above. IMPRESSION: 1. The patient has abdominal pain, rule out underlying occult abdominal wall infection, leukocytosis. 2. History of depression, anxiety. 3. History of dyslipidemia. 4. History of cholecystectomy. 5. History of incisional hernia repair. PLAN: Dr. Ames to see this patient in consultation. IV fluid, antibiotic, pain medication. Orders were done. DVT prophylaxis. Dictated By: HUMA SHANKS MD BS/NTS Conf#: [id number] DID#: [id number] MTDD
[2016-06-23 08:00] VITALS: BP 100/57; RESP 14
--- NOTE | 2016-06-23 09:33 | PN ---
Date/Time of Note Date/Time of Note DATE: 06/23/16 TIME: 09:29 Assessment/Plan Lines/Catheters IV Catheter Type (from [facility]): Peripheral IV Assessment/Plan Assessment/Plan [facility] Progress Note Date of Service: 06/23/16 Today's Impression & Plan: Overall stable and doing well post op without major incision related issues. No more issues with n/v or dizziness. Patient had diarrhea; therefore, likely symptoms related to viral issues or other issues unrelated to her hernia repair site. Do not believe she has a mesh infection or surgical site infection. Ok from my standpoint for patient to d/c home. With above assessment, I've recommended the following for today: 1. D/c home 2. F/u with PCP 3. F/u with us in 2-3 weeks prn (if doing well and no other issues, may cancel appointment since I already saw her post op) Thank you again for your great care of this very pleasant patient and wonderful family. If there are any questions, please feel free to call me at [phone]. TOTAL VISIT TIME: 20 minutes of which more than half was spent in [id number] discussion with the patient, possibly including family, as well as coordination of care between multiple physicians and providers. Disclaimer: Inadvertent spelling or grammatical errors are likely due to EHR/ dictation software use and do not reflect on the overall quality of patient care. Updated Clinical Summary: The patient is a very pleasant 51-year-old lady with comorbidity of BMI 30 and previous laparoscopic cholecystectomy in [facility] 2 years ago that was complicated by incisional hernia. S/p an otherwise uncomplicated laparoscopic, converted to open umbilical incisional hernia repair with mesh (3cm x 3cm defect ; Ventralight ST [id number]) on 06/17/2016. Readmitted with abdominal pain, nausea, vomiting, and headache on 06/21/2016 through the emergency department with white blood cell count of approximately 12,000 and slight fluid around the mesh as well as 2 small air bubbles. Clinical picture was not consistent with mesh infection. COMORBIDITIES: 1. BMI 30. 2. Prior laparoscopic cholecystectomy complicated by incisional hernia at the umbilicus. 3. Possible muscle spasm treated with Benztropine. 4. History of hyperlipidemia. 5. Anxiety. 6. Depression. 7. S/p an otherwise uncomplicated laparoscopic, converted to open umbilical incisional hernia repair with mesh (3cm x 3cm defect; Ventralight ST [id number]) on 06/17/2016. Readmitted with abdominal pain, nausea, vomiting, and headache on 06/21/2016 through the emergency department with white blood cell count of approximately 12,000 and slight fluid around the mesh as well as 2 small air bubbles. Clinical picture was not consistent with mesh infection. Subjective: No major events or complaints overnight; no major abd pain and under control with medications; reports only discomfort around the incision and no leakage/ drainage from the wound; no n/v/d; no sob or cp; + flatus; + BM and diarrhea; + activity Objective: Vitals: See below Exam: GENERAL: On exam, the patient was sitting in a chair and appeared to be comfortable and in no acute distress. ABDOMEN: Soft, nontender and nondistended. Incisions are clean, dry and intact without any evidence of erythema, edema, discharge, or hernia. There are no peritoneal signs or guarding. SKIN: Skin appears to be pink and feels warm to touch. NEUROLOGIC: Patient is awake, alert, and follows commands appropriately. Exam/Review of Systems Vital Signs Vitals Vital Signs Date Time Temp Pulse Resp B/P Pulse Ox O2 Delivery O2 Flow Rate FiO2 06/23/16 08:00 98.5 67 14 100/57 98 06/22/16 12:00 Room Air Intake and Output 06/22/16 06/22/16 06/23/16 15:00 23:00 07:00 Intake Total 100 ml 1160 ml 900 ml Output Total 800 ml 600 ml Balance 100 ml 360 ml 300 ml Results Result Diagram: 06/23/16 0427 06/23/16 0427 MIRTA WITT M.D. Jun 23, 2016 09:33
[2016-06-23] MEDS ORDERED: POTASSIUM CHLORIDE 250 ML IVPB ONE (11:00)
[2016-06-23] MEDS: DEXTROSE 5%-0.9% NACL 1,000 ML IV SCH (16:09)
--- NOTE | 2016-06-23 18:29 | PDOCDIS ---
Discharge Instructions CONDITION Patient Condition: Stable HOME CARE INSTRUCTIONS: Diet Instructions: Low Fat /CholesterolSpecial Diet: LOW FAT DIET ACTIVITY: Activity Restrictions: Slowly Increase Activity Rest between Activity Avoid heavy lifting Do not operate Machinery Do not operate Power Tool FOLLOW UP/APPOINTMENTS Appointments f/u own pcp [address] gatica 1 wk HUMA SHANKS MD Jun 23, 2016 18:28
[2016-06-23] MEDS ORDERED: DOXY-220 PO (18:30)
== END 2016-06-23 19:10 | disposition home or self-care (01) | DRG 948 ==
LOC: E/R 13:53 → MS1 19:58 → OBSVTOIN 06-22 11:27
PROVIDERS: ADMIT Internal Medicine Nephrology; ATTEND Internal Medicine Nephrology
DX: G89.18 Other acute postprocedural pain (principal); I10 Essential (primary) hypertension; R11.2 Nausea with vomiting, unspecified; E78.5 Hyperlipidemia, unspecified; F41.8 Other specified anxiety disorders; R10.9 Unspecified abdominal pain
CPT/HCPCS: 36415; 74176; 80053; 81001; 81003; 83690; 84484; 85025; 85610; 85730; 87075; 93005; 96374; 96375; 96376; C9113; G0378; J0696; J1100; J1200; J2270; J2405; J2543; J2765; J3480; J7030; J7042

== ENCOUNTER 2016-07-14 11:23 | Outpatient (CLI) | payer OTHER ==
[~2016-07-14] VITALS: Ht 160 cm; Wt 76.4 kg
[~2016-07-14 11:23] MED LIST changes: +DOXY-220 PO
[2016-07-14 11:28] VITALS: BP 112/66; PULSE 73; RESP 16; Ht 160 cm; Wt 76.4 kg
--- NOTE | 2016-07-14 12:27 | PN ---
Date/Time of Note Date/Time of Note DATE: 07/14/16 TIME: 12:24 Assessment/Plan Assessment/Plan Assessment/Plan [facility] Progress Note Date of Service: 07/14/16 Today's Impression & Plan: Overall stable and doing well post op without major incision related issues. Abdomen appears benign and no indication for acute surgical intervention. With above assessment, I've recommended the following for today: 1. F/u with PCP 2. F/u with us prn Thank you again for your great care of this very pleasant patient and wonderful family. If there are any questions, please feel free to call me at [phone]. TOTAL VISIT TIME: 20 minutes of which more than half was spent in [id number] discussion with the patient, possibly including family, as well as coordination of care between multiple physicians and providers. Disclaimer: Inadvertent spelling or grammatical errors are likely due to EHR/ dictation software use and do not reflect on the overall quality of patient care. Updated Clinical Summary: The patient is a very pleasant 51-year-old lady with comorbidity of BMI 30 and previous laparoscopic cholecystectomy in [facility] 2 years ago that was complicated by incisional hernia. S/p an otherwise uncomplicated laparoscopic, converted to open umbilical incisional hernia repair with mesh (3cm x 3cm defect ; Ventralight ST [id number]) on 06/17/2016. Readmitted with abdominal pain, nausea, vomiting, and headache on 06/21/2016 through the emergency department with white blood cell count of approximately 12,000 and slight fluid around the mesh as well as 2 small air bubbles. Clinical picture was not consistent with mesh infection. COMORBIDITIES: 1. BMI 30. 2. Prior laparoscopic cholecystectomy complicated by incisional hernia at the umbilicus. 3. Possible muscle spasm treated with Benztropine. 4. History of hyperlipidemia. 5. Anxiety. 6. Depression. 7. S/p an otherwise uncomplicated laparoscopic, converted to open umbilical incisional hernia repair with mesh (3cm x 3cm defect; Ventralight ST [id number]) on 06/17/2016. Readmitted with abdominal pain, nausea, vomiting, and headache on 06/21/2016 through the emergency department with white blood cell count of approximately 12,000 and slight fluid around the mesh as well as 2 small air bubbles. Clinical picture was not consistent with mesh infection. Subjective: No major events or complaints since discharge; no major abd pain and under control with medications; no discomfort around the incision and no leakage/ drainage from the wound; no n/v/d; no sob or cp; + flatus; + BM and diarrhea; + activity Objective: Vitals: See below Exam: GENERAL: On exam, the patient was sitting in a chair and appeared to be comfortable and in no acute distress. ABDOMEN: Soft, nontender and nondistended. Incisions are clean, dry and intact without any evidence of erythema, edema, discharge, or hernia. There are no peritoneal signs or guarding. SKIN: Skin appears to be pink and feels warm to touch. NEUROLOGIC: Patient is awake, alert, and follows commands appropriately. Exam/Review of Systems Vital Signs Vitals Vital Signs Date Time Temp Pulse Resp B/P Pulse Ox O2 Delivery O2 Flow Rate FiO2 07/14/16 11:28 97.9 73 16 112/66 94 Room Air MIRTA WITT M.D. July 14, 2016 12:27
== END 2016-07-14 16:44 | disposition home or self-care (01) ==
LOC: HPC 11:23
PROVIDERS: ATTEND Transplant Surgery
DX: K43.2 Incisional hernia without obstruction or gangrene (principal); F41.8 Other specified anxiety disorders
CPT/HCPCS: G0463